=== PATIENT | female | born 1960 | race American Indian/Alaskan Native ===

== ENCOUNTER 2016-09-07 08:37 | Outpatient (CLI) | payer MEDICARE ==
--- NOTE | 2016-09-07 13:47 | Cat Scan Report ---
CT ABDOMEN AND PELVIS WITH CONTRAST: 09/07/16 08:37:00 CLINICAL: Abdominal pain. COMPARISON: None. TECHNIQUE: Volumetric acquisition and 1.25 millimeter scan reconstructions after the uneventful intravenous injection of 100 cc Omnipaque 300. Consent was obtained prior to the administration of contrast. Oral contrast was also given. FINDINGS: Abdomen: Clear lung bases.Normal liver, bile ducts and gallbladder. Normal stomach, duodenum, pancreas and spleen. Normal adrenal glands and kidneys. The renal collecting systems and ureters are nondilated. Normal aorta and inferior vena cava. Normal small bowel and colon. The appendix is normal. No mass, lymphadenopathy or ascites.No pneumoperitoneum. Pelvis: Normal urinary bladder.The uterus is mildly enlarged and measures 13.9 x 7.6 x 8.5 cm. There is a suggestion of small leiomyomata. Mild uterine calcifications. Normal ovaries with a dominant 1.9 cm follicle of the left ovary. Normal rectum and sigmoid colon.. Bone windows demonstrate no bone lesion. IMPRESSION:1. Normal abdomen. 2. Uterine low mild the and mild uterine enlargement. 3. Normal ovaries.
== END 2016-09-07 08:38 | disposition home or self-care (01) ==
LOC: SPVIMAG 08:37
PROVIDERS: ATTEND Family Medicine
DX: N85.2 Hypertrophy of uterus (principal); N85.8 Other specified noninflammatory disorders of uterus
CPT/HCPCS: 74177; Q9967

== ENCOUNTER 2017-06-15 08:49 | Outpatient (CLI) | payer MEDICARE ==
--- NOTE | 2017-06-15 09:43 | XRay Report ---
BILATERAL KNEE RADIOGRAPHS INDICATION: Bilateral knee pain. COMPARISON: None similar. FINDINGS: Standing AP, oblique, lateral and sunrise views of both knees obtained. RIGHT KNEE: Moderate to severe lateral, mild medial and possible patellofemoral compartment degenerative narrowing. Diffuse degenerative spurring, greatest involving the lateral compartments and superior patellar pole. Minimal suprapatellar fluid possible, though without a large/significant effusion. Patellar enthesophytes. LEFT KNEE: Intact articulation with mild degenerative spurring involving the tibial spines, medial corners and the superior patellar pole. Patellar enthesophytes also noted. Minimal suprapatellar fluid without significant effusion. CONCLUSION: Right more than left knee osteoarthritic changes, as described. Thank you for the opportunity to participate in this patient's care.
== END 2017-06-15 08:50 | disposition home or self-care (01) ==
LOC: SPVIMAG 08:49
PROVIDERS: ATTEND Orthopaedic Surgery
DX: M17.0 Bilateral primary osteoarthritis of knee (principal); M25.861 Other specified joint disorders, right knee; M25.862 Other specified joint disorders, left knee; M76.892 Other specified enthesopathies of left lower limb, excluding foot; M76.891 Other specified enthesopathies of right lower limb, excluding foot

== ENCOUNTER 2018-08-23 08:37 | Outpatient (CLI) | payer OTHER, MEDICARE ==
--- NOTE | 2018-08-23 11:17 | Vascular Lab Report ---
PROCEDURE: VL VENOUS DUPLEX LE BILAT TECHNIQUE: Grayscale and color and spectral doppler ultrasound imaging of the bilateral lower extrem ity venous system was performed. HISTORY: LOCALIZED EDEMA COMPARISONS: None. FINDINGS: There is normal compression and color flow within the bilateral lower extremity venous system. Nita l augmentation was seen. Soft tissue edema is seen surrounding the right knee. IMPRESSION: No evidence of deep venous thrombosis. This document is electronically signed by Nidia Marcelino., Aug 23 2018 11:15:43 AM ET
== END 2018-08-23 08:38 | disposition home or self-care (01) ==
LOC: VAS 08:37
PROVIDERS: ATTEND Internal Medicine
DX: R60.0 Localized edema (principal)
CPT/HCPCS: 36415; 36600; 82803; 85379; 93970